=== PATIENT | male | born 1965 | race Caucasian/White ===

== ENCOUNTER 2023-07-08 07:08 | Day surgery (SDC) | payer OTHER ==
[~2023-07-08] VITALS: Ht 182.9 cm; Wt 104.3 kg
[2023-07-08] MEDS ORDERED: ACETAMINOPHEN I.V. 1000 MG 100 ML IV ONE (09:24)
[2023-07-08] MEDS ORDERED: fentaNYL CITRATE/PF 100 MCG/2 ML AMP ONE ×2 (09:24→10:41)
[2023-07-08 09:36] VITALS: O2SAT 96
[2023-07-08] MEDS ORDERED: BUPIVACAINE LIPOSOME/PF 266 MG/20 ML VIAL INFIL ONE (09:58)
[2023-07-08] MEDS ORDERED: NALOXONE HCL 0.4 MG/ML AMP (NARCAN) IVP PRN (10:00)
[2023-07-08] MEDS ORDERED: ONDANSETRON HCL 4 MG/2 ML VIAL IVP PRN (10:00)
[2023-07-08] MEDS ORDERED: HYDROmorphone 1 MG/ML INJ. CARTRIDGE IVP PRN ×2 (10:00)
[2023-07-08] MEDS ORDERED: hydrALAZINE HCL 20 MG/ML VIAL IV PRN (10:00)
[2023-07-08] MEDS ORDERED: KETOROLAC TROMETHAMINE 30 MG VIAL IM PRN (10:00)
[2023-07-08] MEDS ORDERED: LR 1,000 ML IV.SOLN IV ONE (10:41)
[2023-07-08] MEDS ORDERED: LIDOCAINE 2%, 20 ML MDV ONE (10:41)
[2023-07-08] MEDS ORDERED: ROCURONIUM BROMIDE 10 MG/ML (ZEMURON) ONE (10:41)
[2023-07-08] MEDS ORDERED: SUCCINYLCHOLINE CHLORIDE 20 MG/ML(QUELICIN) ONE (10:41)
[2023-07-08] MEDS ORDERED: NS IRRIG SOLN 1000 ML IR ONE (10:41)
[2023-07-08] MEDS ORDERED: DEXAMETHASONE SOD PHOSPHATE 4 MG/ML VIAL ONE (10:41)
[2023-07-08] MEDS ORDERED: CEFAZOLIN 1 GM IVPB PREMIX 50 ML IV ONE (10:41)
[2023-07-08] MEDS ORDERED: SEVOFLURANE 15 MIN GAS INH ONE (10:41)
[2023-07-08] MEDS ORDERED: PROPOFOL 200MG/ 20ML VIAL (DIPRIVAN) IV ONE (10:41)
[2023-07-08] MEDS ORDERED: BUPIVACAINE /PF 0.25% 30 ML VIAL INJ ONE (10:41)
[2023-07-08 14:44] VITALS: BP_SYST 142; PULSE 64; RESP 20
== END 2023-07-08 13:47 | disposition home or self-care (01) ==
LOC: SDS 07:08 → SMU 07:09 → SDS 13:47
PROVIDERS: ATTEND Surgery
DX: K42.9 Umbilical hernia without obstruction or gangrene (principal); I10 Essential (primary) hypertension; J45.909 Unspecified asthma, uncomplicated; E78.5 Hyperlipidemia, unspecified; K21.9 Gastro-esophageal reflux disease without esophagitis; Z79.899 Other long term (current) drug therapy
CPT/HCPCS: 87081; 49591; 88302; C9290; J3490; J0690; J1100; J2001; J2704; J0330; J3010; J7120; C1781; J0131